=== PATIENT | female | born 1930 | race Caucasian/White ===

== ENCOUNTER 2018-03-31 23:20 | Emergency (ER) | payer MEDICARE, OTHER ==
--- NOTE | 2018-03-31 23:58 | CT ---
CT BRAIN NONCONTRAST: HISTORY: An 88-year-old demented female status post acute head trauma from fall. FINDINGS: There is no midline shift or any other mass effect. There is no evidence of acute intracranial hemor rhage, large cortical infarct, obstructive hydrocephalus, or extraaxial fluid collection. The calvar ium is intact. There is diffuse parenchymal volume loss. There are low attenuation areas in the whi te matter. These are nonspecific, but in a patient of this age, they are probably chronic ischemic w ming matter changes due to microvascular atherosclerosis. IMPRESSION: 1) No acute intracranial findings. 2) Involutional changes and chronic ischemic white matter changes. jn [] POS: [facility]
--- NOTE | 2018-03-31 23:59 | CT ---
CT CERVICAL SPINE NONCONTRAST: HISTORY: An 88-year-old female, status post acute cervical trauma from fall. FINDINGS: There are no jumped or perched facets. There is no evidence of acute fracture. The vertebral body h eights are maintained. There is no prevertebral soft tissue swelling. IMPRESSION: No evidence of acute fracture or acute traumatic subluxation. michele [] POS: [facility]
--- NOTE | 2018-04-01 00:01 | RAD ---
RADIOGRAPH PELVIS ONE VIEW: 03/31/2018 11:33 p.m. HISTORY: An 88-year-old female status post acute pelvic trauma from fall. FINDINGS: Severe degenerative disk disease at L4-L5. Bilateral metallic acetabular cups anchored to the pelvis with screws. Metallic femoral head and neck prostheses with femoral stems that reach the proximal f emoral shafts. Pelvic ring appears to be grossly intact. No dislocation. No grossly displaced frac ture identified. IMPRESSION: 1. No fracture identified. 2. Status post bilateral total hip replacement arthroplasty. 3. Lower lumbar spondylosis. POS: [facility]
--- NOTE | 2018-04-01 00:05 | RAD ---
RADIOGRAPH CHEST 1 VIEW: HISTORY: An 88-year-old female, status post acute chest trauma from fall. FINDINGS: There is no air space density, pulmonary edema, or pneumothorax. The lateral costophrenic angles are sharp. There are sternotomy wires and surgical clips over the left cardiac border. There is superi or subluxation of the bilateral humeral heads, relative to the glenoid. IMPRESSION: 1. No acute pulmonary findings. 2. 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 3. Evidence for chronic bilateral rotator cuff tears. jn [] POS: [facility]
[2018-04-01 00:09] LABS: #Basophils 0.1 thou/uL (0.0-0.2); #Eosinphils 0.1 thou/uL (0.0-0.7); #Monocytes 0.9 thou/uL (0.11-0.59); #Neutrophils 8.2 thou/uL (1.40-6.50); %Basophils 0.7 % (0.0-1.0); %Eosinophils 0.8 % (0.0-10.0); %Lymphocytes 24.5 % (21.0-51.0); %Monocytes 7.1 % (0.0-10.0); %Neutrophils 66.9 % (42.0-75.0); Hemoglobin 14.1 g/dL (12.0-16.0); Mean Corpuscular HGB CONC 33.8 g/dL (32.0-36.0); Mean Corpuscular Hemoglobin 32.3 pg (27.0-31.0); Mean Corpuscular Volume 95.7 fL (78.0-98.0); Mean Platelet Volume 6.7 fL (7.4-10.4); Platelet Count 328 thou/uL (130-400); Red Blood Cell (RBC) Count 4.35 mill/uL (4.20-5.40); White Blood Cell (WBC) Count 12.3 thou/uL (4.8-10.8)
[2018-04-01] MEDS ORDERED: Adacel (T-DAP) 0.5 ML VIAL ONE (00:15)
[2018-04-01] MEDS ORDERED: Lidocaine 2% w/Epinephrine 1:200K 20 ML VIAL ONE (00:18)
[2018-04-01 00:28] LABS: ALT (SGPT) 69 U/L (8-55); AST (SGOT) 92 U/L (5-34); Alkaline Phosphatase 211 U/L (40-150); Anion Gap 19 mmol/L (10-20); BUN (Urea Nitrogen) 11 mg/dL (9.8-20.1); Bilirubin, Total 0.3 mg/dL (0.2-1.2); Calc. Creatinine Clearance 0 mL/min (70-130); Calcium 9.2 mg/dL (7.8-10.44); Carbon Dioxide 21 mmol/L (23-31); Chloride 103 mmol/L (98-107); Estimated GFR-MDRD 67; Globulin 3.3 g/dL (2.4-3.5); Glucose 99 mg/dL (83-110); Protein, Total 7.3 g/dL (6.0-8.3); Sodium 139 mmol/L (136-145)
[2018-04-01 01:26] LABS: Bilirubin Negative (Negative); Blood, Urine Moderate (Negative); Glucose, Urine (Dipstick) Negative (Negative); Leukocyte Negative (Negative); Nitrite Positive (Negative); Protein, Urine (Dipstick) Negative (Neg-Trace); Urobilinogen 0.2 mg/dL (0.2-1.0)
[2018-04-01 01:29] LABS: Clarity Hazy (Clear); Specific Gravity, Urine 1.005 (1.002-1.036)
[2018-04-01 01:30] LABS: Bacteria/HPF 4+ HPF (None Seen)
[2018-04-01] MEDS ORDERED: Cephalexin 500 MG CAP ONE (01:40)
== END 2018-04-01 02:00 | disposition home or self-care (01) ==
LOC: MADERS 23:20
DX: S01.01XA Laceration without foreign body of scalp, initial encounter (principal); N39.0 Urinary tract infection, site not specified; E78.5 Hyperlipidemia, unspecified; I10 Essential (primary) hypertension; G30.9 Alzheimer's disease, unspecified; F02.80 Dementia in other diseases classified elsewhere, unspecified severity, without behavioral disturbance, psychotic disturbance, mood disturbance, and anxiety; Z79.899 Other long term (current) drug therapy; Z79.82 Long term (current) use of aspirin; W19.XXXA Unspecified fall, initial encounter
CPT/HCPCS: 12001; 70450; 71045; 72125; 72170; 80053; 81003; 81015; 85025; 85610; 90471; 90715; 93005

== ENCOUNTER 2018-04-12 13:51 | Emergency (ER) | payer MEDICARE, OTHER | END 2018-04-12 14:10 | disposition home or self-care (01) | LOC: MADERS 13:51 | DX: S01.01XD Laceration without foreign body of scalp, subsequent encounter (principal); I10 Essential (primary) hypertension; E78.5 Hyperlipidemia, unspecified; G30.9 Alzheimer's disease, unspecified; F02.80 Dementia in other diseases classified elsewhere, unspecified severity, without behavioral disturbance, psychotic disturbance, mood disturbance, and anxiety; Z79.82 Long term (current) use of aspirin; Z79.899 Other long term (current) drug therapy ==